=== PATIENT | female | born 1990 | race Two or more races ===

== ENCOUNTER 2022-01-31 11:14 | Emergency (ER) | payer MEDICAID ==
[~2022-01-31] VITALS: Ht 165.1 cm; Wt 100.0 kg
[2022-01-31 11:23] VITALS: BP 118/70
[2022-01-31] MEDS ORDERED: ONDANSETRON HCL 4MG/2ML INJ IV STA (11:34)
[2022-01-31] MEDS ORDERED: SODIUM CHLORIDE 0.9% 1,000 ML IV ONE (11:45)
[2022-01-31 12:11] LABS: BASOPHILS % 0.3 % (0.0-2.0); EOSINOPHILS % 0.1 % (0.0-5.0); HEMATOCRIT. 32.7 % (36.0-48.0); HEMOGLOBIN. 11.3 g/dL (12.0-16.0); LYMPHOCYTES % 9.6 % (20.0-50.0); MEAN CORPUSCULAR HEMOGLOBIN 29.9 pg (28.0-32.0); MEAN CORPUSCULAR VOLUME 86.9 fL (81.0-99.0); MEAN PLATELET VOLUME 8.4 fl (7.4-10.4); MONOCYTES % 9.7 % (2.0-8.0); NEUTROPHILS % 80.3 % (40.0-76.0); PLATELET 254 x1000/uL (130-400); RED BLOOD CELL COUNT 3.77 mill/uL (4.2-5.4); RED CELL DISTRIBUTION WIDTH 14.3 % (11.6-14.6)
[2022-01-31 12:23] LABS: CHLORIDE 105 mEq/L (98-107)
[2022-01-31 12:45] LABS: B-HCG QUANTITATIVE 5391 mIU/mL (<3); PROTHROMBIN TIME 10.4 sec (9.6-11.0)
[2022-01-31 14:12] LABS: CLARITY URINE CLOUDY (CLEAR); COLOR URINE DARK YELLOW (YELLOW); KETONES URINE 4+ (NEGATIVE); LEUKOCYTE ESTERASE URINE TRACE (NEGATIVE); NITRITE URINE NEGATIVE (NEGATIVE); OCCULT BLOOD URINE NEGATIVE (NEGATIVE); PH URINE 6.5 (4.5-8.0); PROTEIN URINE TRACE (NEGATIVE); SPECIFIC GRAVITY URINE 1.017 (1.005-1.030)
[2022-01-31] MEDS ORDERED: CEFP200T13 MT (14:56)
[2022-01-31] MEDS ORDERED: CEFTRIAXONE 1 G PREMIX 50 ML IV ONE (15:00)
== END 2022-01-31 15:31 | disposition home or self-care (01) ==
LOC: ER 11:14
DX: O23.33 Infections of other parts of urinary tract in pregnancy, third trimester (principal); U07.1 COVID-19; N39.0 Urinary tract infection, site not specified; O26.893 Other specified pregnancy related conditions, third trimester; Z3A.31 31 weeks gestation of pregnancy
CPT/HCPCS: 36415; 80053; 81003; 83690; 84702; 85025; 85610; 87426; 96361; 96365; 96375; 99284; J0696; J2405; J7030

== ENCOUNTER 2022-03-31 18:29 | Inpatient (IN) | payer MEDICAID ==
[~2022-03-31] VITALS: Ht 165.1 cm; Wt 100.0 kg
[~2022-03-31 18:29] MED LIST: CEFP200T13 MT
[2022-03-31] MEDS ORDERED: BUTORPHANOL TARTRATE 2 MG/ML VIAL IV PRN (21:45)
[2022-03-31] MEDS ORDERED: LIDOCAINE HCL 1% 10 MG/ML 10ML VIAL INJ SCH (21:45)
[2022-03-31] MEDS ORDERED: CARBOPROST TROMETHAMINE 250 MCG/ML AMPUL IM PRN (21:45)
[2022-03-31] MEDS ORDERED: MISOPROSTOL 100MCG TABLET VG SCH (21:45)
[2022-03-31] MEDS ORDERED: METHYLERGONOVINE MALEATE 0.2 MG/ML IM PRN (21:45)
[2022-03-31] MEDS ORDERED: OXYTOCIN 30 UNITS/500ML NS PMX 500 ML IV SCH (22:00)
[2022-03-31] MEDS ORDERED: ONDANSETRON HCL 4MG/2ML INJ IV PRN (23:15)
[2022-03-31] MEDS ORDERED: ACYC200C31 PO (23:18)
[2022-03-31] MEDS ORDERED: PNV1TABL50 PO (23:18)
[2022-03-31] MEDS ORDERED: FERR325T6 PO (23:18)
[2022-03-31 23:26] LABS: CLARITY URINE CLEAR (CLEAR); COLOR URINE DARK YELLOW (YELLOW); KETONES URINE TRACE (NEGATIVE); LEUKOCYTE ESTERASE URINE NEGATIVE (NEGATIVE); NITRITE URINE NEGATIVE (NEGATIVE); OCCULT BLOOD URINE NEGATIVE (NEGATIVE); PH URINE 6.5 (4.5-8.0); PROTEIN URINE 1+ (NEGATIVE); SPECIFIC GRAVITY URINE 1.029 (1.005-1.030)
[2022-03-31] MEDS: LACTATED RINGERS 1,000 ML IV SCH (23:26)
[2022-03-31 23:28] LABS: PARTIAL THROMBOPLASTIN TIME 26.3 sec (23.4-31.0); PROTHROMBIN TIME 10.6 sec (9.6-11.0)
[2022-03-31 23:44] LABS: *AMPHETAMINES SCREEN URINE NEGATIVE (NEGATIVE); *BARBITURATES SCREEN URINE NEGATIVE (NEGATIVE); *BENZODIAZEPINES SCREEN URINE NEGATIVE (NEGATIVE); *COCAINE SCREEN URINE NEGATIVE (NEGATIVE); CANNABINOID URINE SCREEN NEGATIVE (NEGATIVE); METHADONE URINE SCREEN NEGATIVE (NEGATIVE); OPIATES URINE SCREEN NEGATIVE (NEGATIVE); PHENCYCLIDINE URINE SCREEN NEGATIVE (NEGATIVE)
[2022-03-31 23:48] LABS: HEPATITIS B SURFACE ANTIGEN NEGATIVE
[2022-03-31 23:53] LABS: BASOPHILS % 0.3 % (0.0-2.0); EOSINOPHILS % 0.3 % (0.0-5.0); HEMATOCRIT. 32.7 % (36.0-48.0); LYMPHOCYTES % 16.9 % (20.0-50.0); MEAN CORPUSCULAR HEMOGLOBIN 28.1 pg (28.0-32.0); MEAN CORPUSCULAR VOLUME 83.9 fL (81.0-99.0); MEAN PLATELET VOLUME 9.7 fl (7.4-10.4); MONOCYTES % 9.2 % (2.0-8.0); NEUTROPHILS % 73.3 % (40.0-76.0); PLATELET 300 x1000/uL (130-400); RED CELL DISTRIBUTION WIDTH 15.3 % (11.6-14.6)
[2022-04-01] MEDS: LACTATED RINGERS 1,000 ML IV SCH ×3 (03:17→20:27)
[2022-04-01] MEDS ORDERED: ROPIVACAINE HCL/PF EPIDURAL 200 ML EPI SCH (05:00)
[2022-04-01] MEDS ORDERED: TERBUTALINE SULFATE 1MG/ML VIAL SUBCUT ONE (08:45)
[2022-04-01] MEDS ORDERED: LIDOCAINE HCL 2%/EPINEPHRINE 1:100,000 20 ML VIAL INFIL ONE (08:50)
[2022-04-01] MEDS ORDERED: OXYTOCIN 10 UNITS/ML 1ML ONE (08:54)
[2022-04-01] MEDS ORDERED: TERBUTALINE SULFATE 1MG/ML VIAL SUBCUT NR (09:00)
[2022-04-01] MEDS ORDERED: DEXAMETHASONE 4MG/ML 1ML VIAL ONE (09:06)
[2022-04-01] MEDS ORDERED: ONDANSETRON HCL 4MG/2ML INJ ONE (09:06)
[2022-04-01] MEDS ORDERED: MORPHINE SULFATE/PF 1MG/ML 10ML AMP ONE (09:07)
[2022-04-01] MEDS ORDERED: CEFAZOLIN SODIUM 1000MG/VIAL ONE (09:15)
[2022-04-01] MEDS ORDERED: PHENYLEPHRINE HCL 10 MG/ML 1ML (IV VIAL) IV ONE (11:04)
[2022-04-01] MEDS ORDERED: ONDANSETRON HCL 4MG/2ML INJ IV PRN (11:45)
[2022-04-01] MEDS ORDERED: RHO(D) IMMUNE GLOBULIN 300 MCG/SYR IM PRN (11:45)
[2022-04-01] MEDS ORDERED: BISACODYL 10MG SUPP PR PRN (11:45)
[2022-04-01] MEDS ORDERED: HYDROCODONE/ACETAMINOPHEN 5/325MG TABLET PO PRN (11:45)
[2022-04-01] MEDS ORDERED: HEMORRHOIDAL SUPP PR PRN (11:45)
[2022-04-01] MEDS ORDERED: IBUPROFEN 400MG TABLET PO PRN (11:45)
[2022-04-01] MEDS ORDERED: LANOLIN OINT 7GM TUBE TOP PRN (11:45)
[2022-04-01] MEDS ORDERED: OXYTOCIN 30 UNITS/500ML NS PMX 500 ML IV SCH (11:45)
[2022-04-01 14:20] VITALS: BP 101/50
[2022-04-01 17:00] VITALS: BP 106/61
[2022-04-01] MEDS: MAGNESIUM/ALUMINUM HYDROXIDE/SIMETHICONE 30ML UDC PO SCH (18:04)
[2022-04-01] MEDS: SIMETHICONE 80MG TABLET CHEW PO SCH ×2 (18:04→20:28)
[2022-04-01 20:00] VITALS: BP 110/59
[2022-04-01] MEDS: DIPHENHYDRAMINE 25MG CAPSULE PO PRN (20:28)
[2022-04-01] MEDS ORDERED: DOCUSATE SODIUM 100MG CAPSULE PO SCH (21:00)
[2022-04-01 23:30] VITALS: BP 100/50
[2022-04-02 04:30] VITALS: BP 110/56
[2022-04-02] MEDS: IBUPROFEN 800MG TABLET PO PRN ×2 (05:23→17:48)
[2022-04-02 06:58] LABS: BASOPHILS % 0.3 % (0.0-2.0); HEMATOCRIT. 26.3 % (36.0-48.0); HEMOGLOBIN. 8.6 g/dL (12.0-16.0); LYMPHOCYTES % 9.6 % (20.0-50.0); MEAN CORPUSCULAR HEMOGLOBIN 27.9 pg (28.0-32.0); MEAN CORPUSCULAR VOLUME 85.9 fL (81.0-99.0); MEAN PLATELET VOLUME 9.6 fl (7.4-10.4); MONOCYTES % 8.8 % (2.0-8.0); NEUTROPHILS % 81.3 % (40.0-76.0); PLATELET 239 x1000/uL (130-400); RED BLOOD CELL COUNT 3.07 mill/uL (4.2-5.4); RED CELL DISTRIBUTION WIDTH 15.6 % (11.6-14.6)
[2022-04-02 08:00] VITALS: BP 98/57
[2022-04-02] MEDS: MAGNESIUM/ALUMINUM HYDROXIDE/SIMETHICONE 30ML UDC PO SCH ×3 (08:34→20:48)
[2022-04-02] MEDS: FERROUS SULFATE 325MG TABLET PO SCH ×2 (08:34→17:47)
[2022-04-02] MEDS: SIMETHICONE 80MG TABLET CHEW PO SCH ×4 (08:35→20:47)
[2022-04-02] MEDS: PRENATAL VIT/FE FUMARATE/FA TABLET PO SCH (08:35)
[2022-04-02 16:00] VITALS: BP 114/73
[2022-04-02 20:00] VITALS: BP 109/57
[2022-04-02] MEDS: DIPHENHYDRAMINE 25MG CAPSULE PO PRN (20:48)
[2022-04-02] MEDS ORDERED: TETANUS, DIPHTHERIA, PERTUSSIS VAC/PF 0.5ML (>10YR OLD) IM ONE (21:00)
[2022-04-03 04:10] VITALS: BP 107/58
[2022-04-03] MEDS: IBUPROFEN 800MG TABLET PO PRN ×3 (04:20→19:52)
[2022-04-03 06:50] LABS: BASOPHILS % 0.3 % (0.0-2.0); EOSINOPHILS % 0.3 % (0.0-5.0); HEMATOCRIT. 23.9 % (36.0-48.0); HEMOGLOBIN. 7.9 g/dL (12.0-16.0); LYMPHOCYTES % 9.5 % (20.0-50.0); MEAN CORPUSCULAR VOLUME 84.2 fL (81.0-99.0); MEAN PLATELET VOLUME 9.1 fl (7.4-10.4); MONOCYTES % 9.5 % (2.0-8.0); NEUTROPHILS % 80.4 % (40.0-76.0); PLATELET 257 x1000/uL (130-400); RED BLOOD CELL COUNT 2.84 mill/uL (4.2-5.4); RED CELL DISTRIBUTION WIDTH 15.8 % (11.6-14.6)
[2022-04-03 08:00] VITALS: BP 103/69
[2022-04-03] MEDS: MAGNESIUM/ALUMINUM HYDROXIDE/SIMETHICONE 30ML UDC PO SCH ×3 (09:49→19:52)
[2022-04-03] MEDS: PRENATAL VIT/FE FUMARATE/FA TABLET PO SCH (09:49)
[2022-04-03] MEDS: FERROUS SULFATE 325MG TABLET PO SCH ×3 (09:49→17:47)
[2022-04-03] MEDS: SIMETHICONE 80MG TABLET CHEW PO SCH ×3 (12:48→19:53)
[2022-04-03 16:00] VITALS: BP 112/63
[2022-04-03 19:30] VITALS: BP 128/77
[2022-04-03] MEDS: DIPHENHYDRAMINE 25MG CAPSULE PO PRN (20:43)
[2022-04-04 04:00] VITALS: BP 102/53
[2022-04-04] MEDS: IBUPROFEN 800MG TABLET PO PRN (04:39)
[2022-04-04] MEDS ORDERED: CEPH500C2 MT (10:28)
[2022-04-04] MEDS ORDERED: IBUP-2030 MT (10:28)
== END 2022-04-04 07:00 | disposition left against medical advice (07) | DRG 540 ==
LOC: OBSVTOIN 18:29 → 8 EST LDRP 18:29 → 8EST 04-01 15:01
PROVIDERS: ADMIT Obstetrics & Gynecology; ATTEND Obstetrics & Gynecology
PROC: 10D00Z1 Extraction of Products of Conception, Low, Open Approach (ICD-10-PCS; principal; 2022-04-01)
DX: O34.211 Maternal care for low transverse scar from previous cesarean delivery (principal); D62 Acute posthemorrhagic anemia; O99.12 Other diseases of the blood and blood-forming organs and certain disorders involving the immune mechanism complicating childbirth; O99.02 Anemia complicating childbirth; D72.829 Elevated white blood cell count, unspecified; Z20.822 Contact with and (suspected) exposure to COVID-19; Z37.0 Single live birth; Z3A.40 40 weeks gestation of pregnancy; Z88.2 Allergy status to sulfonamides; Z53.29 Procedure and treatment not carried out because of patient's decision for other reasons
CPT/HCPCS: 36415; 76805; 76818; 80305; 81003; 85025; 86592; 86703; 86762; 86850; 86900; 87340; 87426; 88307; 90715; 99281; G0378; J0595; J0690; J1100; J2274; J2370; J2405; J2795; J3490; J7120; Q0163; A4315; J2590

== ENCOUNTER 2022-06-05 13:34 | Emergency (ER) | payer MEDICAID ==
[~2022-06-05] VITALS: Ht 162.6 cm; Wt 87.0 kg
[~2022-06-05 13:34] MED LIST changes: +ACYC200C31 PO; -CEFP200T13 MT; +CEPH500C2 MT; +FERR325T6 PO; +IBUP-2030 MT; +PNV1TABL50 PO
[2022-06-05 13:38] VITALS: BP 145/91
== END 2022-06-05 15:30 | disposition left against medical advice (07) ==
LOC: ER 13:34
DX: Z53.21 Procedure and treatment not carried out due to patient leaving prior to being seen by health care provider (principal)

== ENCOUNTER 2023-02-07 18:01 | Emergency (ER) | payer MEDICAID, OTHER ==
[~2023-02-07] VITALS: Ht 167.6 cm; Wt 74.0 kg
[2023-02-07 18:08] VITALS: BP 146/81; O2SAT 98
[2023-02-07 18:39] LABS: BASOPHILS % 0.5 % (0.0-2.0); DIFFERENTIAL COMMENT 0; HEMATOCRIT. 37.5 % (36.0-48.0); HEMOGLOBIN. 12.4 g/dL (12.0-16.0); LYMPHOCYTES % 9.6 % (20.0-50.0); MEAN CORPUSCULAR HGB CONC 33.1 g/dL (31.0-37.0); MEAN CORPUSCULAR VOLUME 78.7 fL (81.0-99.0); MEAN PLATELET VOLUME 8.8 fl (7.4-10.4); MONOCYTES % 7.3 % (2.0-8.0); NEUTROPHILS % 82.6 % (40.0-76.0); PLATELET 411 x1000/uL (130-400); RED BLOOD CELL COUNT 4.76 mill/uL (4.2-5.4); RED CELL DISTRIBUTION WIDTH 16.6 % (11.6-14.6); WHITE BLOOD COUNT 18.4 x1000/uL (4.5-11.0)
[2023-02-07 18:45] LABS: CHLORIDE 96 mEq/L (98-107); INDEX HEMOLYSI 1 (1-3); INDEX ICTERIC 1 (1-4); INDEX LIPEMIC 1 (1-3); SODIUM 129 mEq/L (136-145)
[2023-02-07 18:47] LABS: CLARITY URINE TURBID (CLEAR); COLOR URINE DARK YELLOW (YELLOW); GLUCOSE URINE NEGATIVE (NEGATIVE); KETONES URINE 2+ (NEGATIVE); LEUKOCYTE ESTERASE URINE 1+ (NEGATIVE); NITRITE URINE POSITIVE (NEGATIVE); OCCULT BLOOD URINE NEGATIVE (NEGATIVE); PROTEIN URINE 2+ (NEGATIVE); SPECIFIC GRAVITY URINE 1.034 (1.005-1.030)
[2023-02-07 18:54] LABS: ALANINE AMINOTRANSFERASE 147 IU/L (13-61); ALBUMIN 4.2 g/dL (3.4-5.0); ASPARTATE AMINOTRANSFERASE 87 IU/L (15-37); BILIRUBIN TOTAL 1.3 mg/dL (0.1-1.0); CALCIUM 9.8 mg/dL (8.5-10.1); CARBON DIOXIDE 26 mEq/L (21-32); CREATININE 0.6 mg/dL (0.6-1.3); GLUCOSE 117 mg/dL (70-105); PROTEIN TOTAL 9.1 g/dL (6.0-8.3); UREA NITROGEN BLOOD 12 mg/dL (7-21)
[2023-02-07 19:12] LABS: RBC URINE 0-2 /hpf (0-2); SQUAMOUS EPITHELIAL CELL URINE 3+ /lpf (RARE/1+)
[2023-02-07 19:13] LABS: BACTERIA URINE 3+; YEAST URINE NONE SEEN
[2023-02-07] MEDS ORDERED: ONDANSETRON HCL 4MG/2ML INJ IV STA (19:24)
[2023-02-07] MEDS ORDERED: SODIUM CHLORIDE 0.9% 1,000 ML IV ONE (19:30)
[2023-02-07] MEDS ORDERED: CEFTRIAXONE 1GM PREMIX 50 ML IV ONE (19:30)
[2023-02-07] MEDS ORDERED: ONDANSETRON HCL 4MG/2ML INJ IV ONE (20:15)
[2023-02-07] MEDS ORDERED: METOCLOPRAMIDE HCL 10MG/2ML VIAL IV ONE (22:30)
[2023-02-08] MEDS ORDERED: PYRI25TA4 MT (00:22)
[2023-02-08] MEDS ORDERED: ONDA4TAB50 MT (00:22)
[2023-02-08] MEDS ORDERED: CEPH500C2 MT (00:27)
[2023-02-08 01:09] VITALS: PULSE 87; RESP 20; TEMP 97.9
[2023-02-09] MEDS ORDERED: METO-293 MT (23:28)
[2023-02-09] MEDS ORDERED: POTA-205 MT (23:28)
== END 2023-02-08 01:11 | disposition home or self-care (01) ==
LOC: ER 18:09
DX: O21.9 Vomiting of pregnancy, unspecified (principal); O23.31 Infections of other parts of urinary tract in pregnancy, first trimester; O20.0 Threatened abortion; Z3A.01 Less than 8 weeks gestation of pregnancy; Z79.899 Other long term (current) drug therapy
CPT/HCPCS: 80053; 81003; 81025; 84702; 83690; 83735; 85025; 36415; 76801; 76817; 96361; 96365; 96375; 99285; J0696; J2765; J2405; J7030; Z7610

== ENCOUNTER 2023-02-09 17:48 | Emergency (ER) | payer MEDICAID ==
[~2023-02-09] VITALS: Ht 165.1 cm; Wt 79.5 kg
[~2023-02-09 17:48] MED LIST changes: +ONDA4TAB50 MT; +PYRI25TA4 MT
[2023-02-09 18:20] VITALS: BP 139/83; O2SAT 100
[2023-02-09] MEDS ORDERED: LACTATED RINGERS 1,000 ML IV SCH (20:30)
[2023-02-09] MEDS ORDERED: METOCLOPRAMIDE HCL 10MG/2ML VIAL IV ONE (20:30)
[2023-02-09 21:02] LABS: BASOPHILS % 0.6 % (0.0-2.0); EOSINOPHILS % 0.1 % (0.0-5.0); HEMATOCRIT. 36.2 % (36.0-48.0); HEMOGLOBIN. 12.1 g/dL (12.0-16.0); LYMPHOCYTES % 15.8 % (20.0-50.0); MEAN CORPUSCULAR HEMOGLOBIN 26.4 pg (28.0-32.0); MEAN PLATELET VOLUME 8.9 fl (7.4-10.4); MONOCYTES % 8.9 % (2.0-8.0); NEUTROPHILS % 74.6 % (40.0-76.0); PLATELET 360 x1000/uL (130-400); RED BLOOD CELL COUNT 4.59 mill/uL (4.2-5.4); RED CELL DISTRIBUTION WIDTH 16.2 % (11.6-14.6)
[2023-02-09 21:09] LABS: CHLORIDE 98 mEq/L (98-107)
[2023-02-09 21:16] LABS: CLARITY URINE TURBID (CLEAR); COLOR URINE DARK YELLOW (YELLOW); KETONES URINE TRACE (NEGATIVE); LEUKOCYTE ESTERASE URINE 2+ (NEGATIVE); NITRITE URINE POSITIVE (NEGATIVE); OCCULT BLOOD URINE NEGATIVE (NEGATIVE); PH URINE 6.5 (4.5-8.0); PROTEIN URINE 2+ (NEGATIVE); SPECIFIC GRAVITY URINE 1.038 (1.005-1.030)
[2023-02-09 21:32] LABS: B-HCG QUANTITATIVE 84644 mIU/mL (<3)
[2023-02-09] MEDS ORDERED: POTASSIUM CHLORIDE 20MEQ TABLET SR PO ONE (23:15)
[2023-02-09] MEDS ORDERED: POTA-205 MT (23:28)
[2023-02-09] MEDS ORDERED: METO-293 MT (23:28)
[2023-02-09] MEDS ORDERED: CEFTRIAXONE SODIUM 1 G/VIAL IM ONE (23:30)
[2023-02-09 23:52] VITALS: PULSE 100; RESP 16; TEMP 98.3
== END 2023-02-10 | disposition home or self-care (01) ==
LOC: ER 17:48
DX: O21.9 Vomiting of pregnancy, unspecified (principal); Z3A.01 Less than 8 weeks gestation of pregnancy
CPT/HCPCS: 80053; 81003; 81025; 84702; 83690; 85025; 87086; 36415; 96361; 96372; 96374; 99283; J0696; J2765; J7120; Z7610 ×4